=== PATIENT | female | born 1990 | race Caucasian/White ===

== ENCOUNTER 2017-10-22 08:35 | Emergency (ER) | payer MEDICAID ==
[~2017-10-22] VITALS: Ht 160 cm; Wt 58.5 kg
[2017-10-22 08:38] VITALS: Ht 160 cm; Wt 58.5 kg
[2017-10-22 09:42] LABS: BASOPHIL % 0.8 % (0-2)
[2017-10-22 09:45] LABS: PLATELET COUNT 402 x10^3mcL (130-400); RED CELL DISTRIBUTION WIDTH 17.7 % (11.5-14.5)
[2017-10-22 09:46] LABS: rbc morphology (normal/abnorm) ABNORMAL (NORMAL)
[2017-10-22 10:45] VITALS: BP 128/70
[2017-10-22 10:45] LABS: UA SPECIFIC GRAVITY 1.025 (1.005-1.035); microscopic required? YES; urine erythrocyte 3+ (NEGATIVE)
== END 2017-10-22 10:45 | disposition home or self-care (01) ==
LOC: ED 08:35
PROVIDERS: Emergency Medicine
DX: N93.8 Other specified abnormal uterine and vaginal bleeding (principal)
CPT/HCPCS: 36415; 87491; 87591

== ENCOUNTER 2018-01-06 09:01 | Emergency (ER) | payer MEDICAID ==
[~2018-01-06] VITALS: Ht 160 cm; Wt 59.4 kg
[2018-01-06 09:04] VITALS: Ht 160 cm; Wt 59.4 kg
[2018-01-06 10:43] LABS: CALCIUM 8.5 mg/dL (8.5-10.1); CARBON DIOXIDE 25.4 mmol/L (21-32); CHLORIDE SERUM 107 mmol/L (98-107); CREATININE SERUM 0.7 mg/dL (0.6-1.0); GFR1 > 60 mL/min; GLUCOSE SERUM 95 mg/dL (74-106); POTASSIUM SERUM 3.8 mmol/L (3.5-5.1); SODIUM SERUM 142 mmol/L (136-145)
[2018-01-06 10:48] LABS: ALBUMIN 3.7 g/dL (3.4-5.0); ALKALINE PHOSPHATASE 45 U/L (46-116); ALT/SGPT 27 U/L (14-59); AMYLASE 63 U/L (25-115); AST/SGOT 17 U/L (15-37); BILIRUBIN TOTAL 0.36 mg/dL (0.20-1.00); LIPASE 155 IU/L (73-393); TOTAL PROTEIN, SERUM 7.7 g/dL (6.4-8.2)
[2018-01-06 11:05] LABS: BASOPHIL % 0.9 % (0-2); PLATELET COUNT 323 x10^3mcL (130-400)
[2018-01-06 11:13] LABS: UA SPECIFIC GRAVITY 1.025 (1.005-1.035); microscopic required? YES; urine erythrocyte NEGATIVE (NEGATIVE)
[2018-01-06 11:20] LABS: RED CELL DISTRIBUTION WIDTH 22.6 % (11.5-14.5)
[2018-01-06 11:42] VITALS: BP 109/68
[2018-01-06 11:59] LABS: C REACTIVE PROTEIN < 0.2 mg/dL (<=0.9)
[2018-01-06 15:24] LABS: ERYTHROCYTE SED RATE 10 mm/hr (0-20)
== END 2018-01-06 11:42 | disposition home or self-care (01) ==
LOC: ED 09:01
PROVIDERS: Specialist
DX: R10.30 Lower abdominal pain, unspecified (principal)
CPT/HCPCS: 87491; 87591; J0696; J1885

== ENCOUNTER 2018-05-07 06:22 | Emergency (ER) | payer MEDICAID ==
[~2018-05-07] VITALS: Ht 160 cm; Wt 59.6 kg
[2018-05-07 06:31] VITALS: Ht 160 cm; Wt 59.6 kg
[2018-05-07 07:05] VITALS: BP 121/87
== END 2018-05-07 07:15 | disposition home or self-care (01) ==
LOC: ED 06:22
DX: K02.9 Dental caries, unspecified (principal); Z98.890 Other specified postprocedural states

== ENCOUNTER 2018-10-12 10:09 | Emergency (ER) | payer OTHER ==
[~2018-10-12] VITALS: Ht 157.5 cm; Wt 56.2 kg
[2018-10-12 10:20] VITALS: Ht 157.5 cm; Wt 56.2 kg
== END 2018-10-12 11:12 | disposition other institution (70) ==
LOC: ED 10:09
DX: Z02.89 Encounter for other administrative examinations (principal)

== ENCOUNTER 2018-10-13 03:40 | Emergency (ER) | payer MEDICAID ==
[~2018-10-13] VITALS: Ht 160 cm; Wt 58.5 kg
[2018-10-13 03:46] VITALS: Ht 160 cm; Wt 58.5 kg
[2018-10-13 05:12] VITALS: BP 150/96
== END 2018-10-13 05:12 | disposition home or self-care (01) ==
LOC: ED 03:40
DX: S61.210A Laceration without foreign body of right index finger without damage to nail, initial encounter (principal); W45.8XXA Other foreign body or object entering through skin, initial encounter; Y93.89 Activity, other specified; Y92.89 Other specified places as the place of occurrence of the external cause; Y99.8 Other external cause status
CPT/HCPCS: 90715